=== PATIENT | male | born 1955 | race African-American/Black ===

== ENCOUNTER 2020-02-29 07:20 | Inpatient (IN) | payer BC ==
[~2020-02-29] VITALS: Ht 180.3 cm; Wt 69.9 kg
[2020-02-29] MEDS ORDERED: ASPIRIN 81MG TABLET PO ONE (09:30)
[2020-02-29 10:31] LABS: BASOPHILS % 0.9 % (0.0-2.0); EOSINOPHILS % 3.4 % (0.0-5.0); HEMATOCRIT. 37.5 % (42.0-52.0); HEMOGLOBIN. 12.4 g/dL (14.0-18.0); MEAN CORPUSCULAR HEMOGLOBIN 28.1 pg (28.0-32.0); MEAN CORPUSCULAR VOLUME 84.8 fL (80.0-94.0); MEAN PLATELET VOLUME 9.9 fl (7.4-10.4); MONOCYTES % 10.5 % (2.0-8.0); NEUTROPHILS % 56.2 % (40.0-76.0); PLATELET 88 x1000/uL (130-400); RED BLOOD CELL COUNT 4.42 mill/uL (4.7-6.1); RED CELL DISTRIBUTION WIDTH 15.5 % (11.6-14.6)
[2020-02-29 10:35] LABS: CHLORIDE 104 mEq/L (98-107)
[2020-02-29] MEDS ORDERED: IPRATROPIUM/ALBUTEROL 0.5-3(2.5)MG/3ML NEB NEB PRN (14:15)
[2020-02-29] MEDS ORDERED: LORAZEPAM 0.5MG TABLET PO PRN (14:15)
[2020-02-29] MEDS ORDERED: ONDANSETRON HCL 4MG/2ML INJ IV PRN (14:15)
[2020-02-29] MEDS ORDERED: DIPHENHYDRAMINE 50MG/ML VIAL IV PRN (14:15)
[2020-02-29] MEDS ORDERED: ACETAMINOPHEN 325MG TABLET PO PRN (14:15)
[2020-02-29] MEDS ORDERED: MAGNESIUM/ALUMINUM HYDROXIDE/SIMETHICONE 30ML UDC PO PRN (14:15)
[2020-02-29] MEDS ORDERED: HYDROCODONE/ACETAMINOPHEN 5/325MG TABLET PO PRN (14:15)
[2020-02-29] MEDS ORDERED: ACETAMINOPHEN 650MG SUPP PR PRN (14:15)
[2020-02-29] MEDS ORDERED: GUAIFENESIN 200MG/10ML SUGAR FREE UDC PO PRN (14:15)
[2020-02-29] MEDS ORDERED: DOCUSATE SODIUM 100MG CAPSULE PO PRN (14:15)
[2020-02-29] MEDS ORDERED: NA PHOS,M-B/NA PHOS,DI-BA ENEMA 118ML PR PRN (14:15)
[2020-02-29 14:24] LABS: INR 1.1; PROTHROMBIN TIME 11.7 sec (9.6-11.0)
[2020-02-29] MEDS ORDERED: AMLODIPINE 2.5MG TABLET PO NR (15:00)
[2020-02-29 16:00] VITALS: BP 137/95
[2020-02-29] MEDS: POTASSIUM CHLORIDE 20MEQ TABLET SR PO SCH (16:20)
[2020-02-29] MEDS: FUROSEMIDE 40MG/4ML VIAL IVP SCH (16:20)
[2020-02-29 16:26] VITALS: BP 137/95
[2020-02-29] MEDS ORDERED: EPLE25TA10 MT (16:57)
[2020-02-29] MEDS ORDERED: METO-396 MT (16:57)
[2020-02-29] MEDS ORDERED: AMI2 MT (16:57)
[2020-02-29] MEDS ORDERED: SACU1TAB MT (16:57)
[2020-02-29] MEDS ORDERED: ATOR40TA70 MT (16:57)
[2020-02-29] MEDS ORDERED: APIX5TAB MT (16:57)
[2020-02-29] MEDS ORDERED: THIA100T72 MT (16:57)
[2020-02-29] MEDS ORDERED: FURO40TA5 MT (16:57)
[2020-02-29] MEDS ORDERED: APIXABAN 5 MG TABLET PO SCH (17:00)
[2020-02-29 20:00] VITALS: BP 100/53
[2020-02-29] MEDS: CARVEDILOL 3.125 MG TABLET PO SCH (20:40)
[2020-02-29] MEDS ORDERED: FAMOTIDINE 20MG TABLET PO SCH (21:00)
[2020-02-29 23:30] LABS: CREATINE KINASE 122 IU/L (39-308)
[2020-02-29 23:31] LABS: CREATINE KINASE MB FRACTION 1.1 ng/mL (0.5-3.6)
[2020-03-01] VITALS: BP 110/71
[2020-03-01 04:00] VITALS: BP 109/68
[2020-03-01 06:01] LABS: CHLORIDE 104 mEq/L (98-107)
[2020-03-01 06:10] LABS: CREATINE KINASE 100 IU/L (39-308); CREATINE KINASE MB FRACTION < 1.0 ng/mL (0.5-3.6); HDL CHOLESTEROL 58 mg/dL (40-59); LDL CHOLESTEROL 76 mg/dL (5-100); T4 FREE 1.65 ng/dL (0.76-1.46)
[2020-03-01] MEDS: FUROSEMIDE 40MG/4ML VIAL IVP SCH (06:19)
[2020-03-01 06:52] LABS: BASOPHILS % 0.9 % (0.0-2.0); HEMATOCRIT. 33.3 % (42.0-52.0); HEMOGLOBIN. 11.3 g/dL (14.0-18.0); LYMPHOCYTES % 33.1 % (20.0-50.0); MEAN CORPUSCULAR HEMOGLOBIN 28.4 pg (28.0-32.0); MEAN PLATELET VOLUME 10.5 fl (7.4-10.4); MONOCYTES % 9.6 % (2.0-8.0); NEUTROPHILS % 52.4 % (40.0-76.0); PLATELET 90 x1000/uL (130-400); RED BLOOD CELL COUNT 3.97 mill/uL (4.7-6.1); RED CELL DISTRIBUTION WIDTH 15.1 % (11.6-14.6)
[2020-03-01 07:44] VITALS: BP_SYST 108; BP_SYST 113; BP_SYST 114; BP_DIAS 69; BP_DIAS 72; BP_DIAS 82
[2020-03-01] MEDS ORDERED: AMIODARONE HCL 200 MG TABLET PO SCH (09:00)
[2020-03-01] MEDS ORDERED: ASPIRIN 81MG EC TABLET PO SCH (09:00)
[2020-03-01] MEDS ORDERED: POTASSIUM CHLORIDE 20MEQ/PACKET PO NR (09:00)
[2020-03-01] MEDS ORDERED: AMLODIPINE 2.5MG TABLET PO SCH (09:00)
[2020-03-01] MEDS: CARVEDILOL 3.125 MG TABLET PO SCH (09:00)
[2020-03-01] MEDS ORDERED: LISINOPRIL 2.5MG TABLET PO SCH (09:00)
[2020-03-01] MEDS: POTASSIUM CHLORIDE 20MEQ TABLET SR PO SCH (10:02)
[2020-03-01 11:54] VITALS: BP 108/69
[2020-03-01 14:43] VITALS: BP 108/69
== END 2020-03-01 16:15 | disposition home or self-care (01) | DRG 315 ==
LOC: ER 07:41 → SUPCPDRO 11:55 → 5WST 13:02 → EDBEDREQ 13:17 → ENRESERV 13:39
PROVIDERS: ADMIT Internal Medicine; ATTEND Internal Medicine
DX: I95.9 Hypotension, unspecified (principal); I42.0 Dilated cardiomyopathy; I50.20 Unspecified systolic (congestive) heart failure; D64.9 Anemia, unspecified; D69.6 Thrombocytopenia, unspecified; E78.5 Hyperlipidemia, unspecified; E87.6 Hypokalemia; I11.0 Hypertensive heart disease with heart failure; I49.3 Ventricular premature depolarization; I48.0 Paroxysmal atrial fibrillation; Z79.01 Long term (current) use of anticoagulants; Z79.899 Other long term (current) drug therapy; Z82.49 Family history of ischemic heart disease and other diseases of the circulatory system; Z91.14 Patient's other noncompliance with medication regimen
CPT/HCPCS: 36415; 71045; 80053; 80061; 82550; 82553; 83880; 84439; 84443; 84484; 85025; 93005; 93306; 99285; J1940

== ENCOUNTER 2020-03-11 02:56 | Emergency (ER) | payer BC ==
[~2020-03-11] VITALS: Ht 180.3 cm; Wt 68.0 kg
[~2020-03-11 02:56] MED LIST: AMI2 MT; APIX5TAB MT; ATOR40TA70 MT; EPLE25TA10 MT; FURO40TA5 MT; SACU1TAB MT; THIA100T72 MT
[2020-03-11] MEDS ORDERED: KETOROLAC 30MG/ML VIAL IV ONE (07:45)
[2020-03-11 09:12] LABS: CHLORIDE 103 mEq/L (98-107)
[2020-03-11 09:20] LABS: BASOPHILS % 0.9 % (0.0-2.0); EOSINOPHILS % 2.9 % (0.0-5.0); HEMATOCRIT. 41.3 % (42.0-52.0); HEMOGLOBIN. 13.7 g/dL (14.0-18.0); LYMPHOCYTES % 35.1 % (20.0-50.0); MEAN CORPUSCULAR HEMOGLOBIN 28.3 pg (28.0-32.0); MEAN CORPUSCULAR VOLUME 85.1 fL (80.0-94.0); MEAN PLATELET VOLUME 10.6 fl (7.4-10.4); MONOCYTES % 7.2 % (2.0-8.0); NEUTROPHILS % 53.9 % (40.0-76.0); PLATELET 79 x1000/uL (130-400); RED BLOOD CELL COUNT 4.86 mill/uL (4.7-6.1); RED CELL DISTRIBUTION WIDTH 15.3 % (11.6-14.6)
[2020-03-11 10:00] VITALS: BP 115/75
== END 2020-03-11 10:15 | disposition home or self-care (01) ==
LOC: ER 02:56
DX: Z00.00 Encounter for general adult medical examination without abnormal findings (principal); I50.9 Heart failure, unspecified
CPT/HCPCS: 36415; 80053; 83880; 84484; 85025; 93005; 99284

== ENCOUNTER 2020-11-06 19:09 | Inpatient (IN) | payer BC ==
[~2020-11-06] VITALS: Ht 180.3 cm; Wt 79.9 kg
[2020-11-07 00:07] LABS: BASOPHILS % 0.7 % (0.0-2.0); HEMATOCRIT. 41.5 % (42.0-52.0); HEMOGLOBIN. 13.8 g/dL (14.0-18.0); LYMPHOCYTES % 27.9 % (20.0-50.0); MEAN CORPUSCULAR HEMOGLOBIN 28.3 pg (28.0-32.0); MEAN CORPUSCULAR VOLUME 85.1 fL (80.0-94.0); MEAN PLATELET VOLUME 10.1 fl (7.4-10.4); MONOCYTES % 6.4 % (2.0-8.0); PLATELET 118 x1000/uL (130-400); RED BLOOD CELL COUNT 4.87 mill/uL (4.7-6.1); RED CELL DISTRIBUTION WIDTH 14.5 % (11.6-14.6)
[2020-11-07 00:14] LABS: CHLORIDE 112 mEq/L (98-107)
[2020-11-07 00:20] LABS: ETHANOL BLOOD < 10 mg/dL
[2020-11-07 03:11] LABS: CLARITY URINE CLOUDY (CLEAR); COLOR URINE DARK YELLOW (YELLOW); KETONES URINE 1+ (NEGATIVE); LEUKOCYTE ESTERASE URINE 1+ (NEGATIVE); NITRITE URINE NEGATIVE (NEGATIVE); OCCULT BLOOD URINE NEGATIVE (NEGATIVE); PH URINE 5.5 (4.5-8.0); PROTEIN URINE 2+ (NEGATIVE); SPECIFIC GRAVITY URINE 1.033 (1.005-1.030)
[2020-11-07 03:25] LABS: METHADONE URINE SCREEN NEGATIVE (NEGATIVE)
[2020-11-07 03:26] LABS: *AMPHETAMINES SCREEN URINE NEGATIVE (NEGATIVE); *BARBITURATES SCREEN URINE NEGATIVE (NEGATIVE); *BENZODIAZEPINES SCREEN URINE NEGATIVE (NEGATIVE); *COCAINE SCREEN URINE NEGATIVE (NEGATIVE); CANNABINOID URINE SCREEN NEGATIVE (NEGATIVE); OPIATES URINE SCREEN NEGATIVE (NEGATIVE); PHENCYCLIDINE URINE SCREEN NEGATIVE (NEGATIVE)
[2020-11-07 08:00] VITALS: BP_SYST 133; BP_SYST 138; BP_DIAS 97
[2020-11-07 08:24] VITALS: BP 133/97
[2020-11-07] MEDS ORDERED: ACETAMINOPHEN 325MG TABLET PO PRN (09:30)
[2020-11-07] MEDS ORDERED: ONDANSETRON HCL 4MG/2ML INJ IV PRN (09:30)
[2020-11-07 11:43] VITALS: BP 121/90
[2020-11-07 12:00] VITALS: BP 121/90
[2020-11-07] MEDS: AMIODARONE HCL 200 MG TABLET PO SCH (13:00)
[2020-11-07 16:00] VITALS: BP 124/96
[2020-11-07] MEDS: APIXABAN 5 MG TABLET PO SCH (16:51)
[2020-11-07] MEDS: FUROSEMIDE 40MG/4ML VIAL IVP SCH (16:51)
[2020-11-07 20:00] VITALS: BP 113/82
[2020-11-07] MEDS: ATORVASTATIN CALCIUM 40MG TABLET PO SCH (20:55)
[2020-11-08] VITALS (8 sets, daily range): BP systolic 102–142; BP diastolic 56–96
[2020-11-08 08:42] LABS: EOSINOPHILS % 3.9 % (0.0-5.0); HEMATOCRIT. 35.1 % (42.0-52.0); LYMPHOCYTES % 30.8 % (20.0-50.0); MEAN CORPUSCULAR HEMOGLOBIN 28.5 pg (28.0-32.0); MEAN CORPUSCULAR VOLUME 83.6 fL (80.0-94.0); MEAN PLATELET VOLUME 10.7 fl (7.4-10.4); MONOCYTES % 7.4 % (2.0-8.0); NEUTROPHILS % 56.9 % (40.0-76.0); PLATELET 105 x1000/uL (130-400); RED CELL DISTRIBUTION WIDTH 14.1 % (11.6-14.6)
[2020-11-08 08:53] LABS: CHLORIDE 112 mEq/L (98-107)
[2020-11-08] MEDS ORDERED: FUROSEMIDE 40MG/4ML VIAL IVP SCH (09:00)
[2020-11-08] MEDS: APIXABAN 5 MG TABLET PO SCH ×2 (09:06→17:51)
[2020-11-08] MEDS: AMIODARONE HCL 200 MG TABLET PO SCH (09:06)
[2020-11-08] MEDS: FUROSEMIDE 40MG/4ML VIAL IVP SCH ×2 (10:19→17:51)
[2020-11-08] MEDS: CARVEDILOL 3.125 MG TABLET PO SCH ×2 (13:11→21:00)
[2020-11-08] MEDS: ATORVASTATIN CALCIUM 40MG TABLET PO SCH (21:23)
[2020-11-09 00:17] VITALS: BP 128/99
[2020-11-09 04:00] VITALS: BP 113/87
[2020-11-09 06:44] LABS: BASOPHILS % 0.6 % (0.0-2.0); EOSINOPHILS % 3.3 % (0.0-5.0); HEMATOCRIT. 37.6 % (42.0-52.0); HEMOGLOBIN. 12.9 g/dL (14.0-18.0); LYMPHOCYTES % 31.6 % (20.0-50.0); MEAN CORPUSCULAR HEMOGLOBIN 28.4 pg (28.0-32.0); MEAN CORPUSCULAR VOLUME 83.1 fL (80.0-94.0); MEAN PLATELET VOLUME 11.3 fl (7.4-10.4); MONOCYTES % 8.4 % (2.0-8.0); NEUTROPHILS % 56.1 % (40.0-76.0); PLATELET 106 x1000/uL (130-400); RED BLOOD CELL COUNT 4.53 mill/uL (4.7-6.1); RED CELL DISTRIBUTION WIDTH 14.2 % (11.6-14.6)
[2020-11-09 06:54] LABS: CHLORIDE 108 mEq/L (98-107)
[2020-11-09 08:09] VITALS: BP 114/83
[2020-11-09] MEDS: FUROSEMIDE 40MG/4ML VIAL IVP SCH ×2 (08:59→17:00)
[2020-11-09] MEDS ORDERED: AMIODARONE HCL 200 MG TABLET PO SCH (09:00)
[2020-11-09] MEDS ORDERED: AMLODIPINE 2.5MG TABLET PO SCH (09:00)
[2020-11-09] MEDS: APIXABAN 5 MG TABLET PO SCH ×2 (09:00→17:00)
[2020-11-09] MEDS: CARVEDILOL 3.125 MG TABLET PO SCH (09:08)
[2020-11-09 12:00] VITALS: BP 108/78
[2020-11-09] MEDS ORDERED: FURO40TA5 MT (12:11)
[2020-11-09] MEDS ORDERED: POTA20TA82 MT (12:12)
[2020-11-09] MEDS ORDERED: POTASSIUM CHLORIDE 10MEQ TABLET SR PO SCH (14:00)
[2020-11-09 14:51] VITALS: BP 108/78
[2020-11-09 16:00] VITALS: BP 130/99
== END 2020-11-09 18:20 | disposition home or self-care (01) | DRG 292 ==
LOC: ER 19:09 → 6WST 11-07 02:07 → ENRESERV 11-07 04:44
PROVIDERS: ADMIT Internal Medicine; ATTEND Internal Medicine
DX: I11.0 Hypertensive heart disease with heart failure (principal); N39.0 Urinary tract infection, site not specified; I50.23 Acute on chronic systolic (congestive) heart failure; I48.0 Paroxysmal atrial fibrillation; I27.20 Pulmonary hypertension, unspecified; E87.6 Hypokalemia; E87.8 Other disorders of electrolyte and fluid balance, not elsewhere classified; I49.1 Atrial premature depolarization; I34.0 Nonrheumatic mitral (valve) insufficiency; D69.6 Thrombocytopenia, unspecified; D64.9 Anemia, unspecified; E78.5 Hyperlipidemia, unspecified; F20.9 Schizophrenia, unspecified; R94.31 Abnormal electrocardiogram [ECG] [EKG]; Z79.01 Long term (current) use of anticoagulants; Z79.899 Other long term (current) drug therapy; Z91.11 Patient's noncompliance with dietary regimen; Z91.19 Patient's noncompliance with other medical treatment and regimen
CPT/HCPCS: 36415; 71045; 80048; 80053; 80305; 80320; 81003; 83880; 84443; 84484; 85025; 93005; 93306; 99285; J1940; G0480